=== PATIENT | female | born 1950 | race Caucasian/White ===

== ENCOUNTER 2021-01-02 10:43 | Outpatient (CLI) | payer MEDICARE, OTHER, SELFPAY ==
--- NOTE | ~2021-01-02 | CT_ITS ---
EXAMINATION: CTA chest PE protocol EXAM DATE: 01/02/2021 15:11 INDICATION: SOB; Positive D Dimer dyspnea, elev ddimer, cough 1wk+. TECHNIQUE: Spiral CTA of the chest (pulmonary arteries) was performed with 100 cc Omnipaque 350 intr avenous contrast injection. Images were acquired during the pulmonary arterial phase. Coronal maxi mum intensity projection 3D-reconstructions were created by the technologist on dedicated workstation . Axial, coronal and sagittal reformatted images were reviewed. The dose-length product (DLP) for t his examination was 954.95 mGy-cm. The exposure was tailored according to patient size (auto mA exp osure control), and iterative reconstruction (ASIR) was used as additional dose reduction technique. There is no prior study for comparison. FINDINGS: Pulmonary arteries are well opacified and without intraluminal filling defects. No thora cic aortic dissection. The lungs are clear. There are no pleural or pericardial effusions. Trach eobronchial tree is patent. There is no mediastinal, hilar or axillary lymphadenopathy. There is no pneumothorax. Heart normal in size. There is mild coronary arterial calcification, arterial sc lerosis. There is hepatic steatosis. Surgical changes, gastric bypass. There is moderate thoracic s pondylosis without osteoblastic or osteolytic lesions identified. Spine stimulator the tips at mid thoracic level. IMPRESSION: No pulmonary emboli or acute findings. Reviewed, dictated and finalized at location B. CHEF
--- NOTE | ~2021-01-02 | XR_ITS ---
EXAMINATION: XR chest 2V DATE: 01/02/2021 11:08 INDICATION: Shortness of breath TECHNIQUE: Frontal and lateral views of the chest are obtained COMPARISON: 09/29/2016 FINDINGS: The lungs are free of acute opacities. There is no pleural effusion or pneumothorax. The ca rdiomediastinal silhouette is normal. There is severe thoracic spondylosis. Neural stimulator leads p roject in the central spinal canal over the upper thoracic spine. There are surgical changes in the l eft upper quadrant. IMPRESSION: 1. No acute cardiopulmonary abnormality. Reviewed, dictated and finalized at location A. BUILDER OPERATOR
[2021-01-02 11:21] LABS: Basophils Absolute Auto 0.02 K/mm3 (0.00-0.10); Basophils Percent Auto 0.3 % (0.0-1.0); Eosinophils Absolute Auto 0.13 K/mm3 (0.02-0.50); Eosinophils Percent Auto 2.2 % (1.0-6.0); Hematocrit 40.6 % (35.0-42.0); Hemoglobin 12.9 g/dL (11.7-13.8); Immature Granulocyte Absolute 0.14 K/mm3 (0.00-0.00); Immature Granulocyte Percent A 2.3 % (0.0-0.0); Lymphocytes Absolute Auto 1.75 K/mm3 (1.10-4.50); Lymphocytes Percent Auto 29.3 % (18.0-42.0); Mean Corpuscular HGB Conc 31.8 g/dL (32.0-36.0); Mean Corpuscular Hemoglobin 31.5 pg (27.0-31.0); Mean Platelet Volume 8.2 fl (9.2-11.8); Monocytes Absolute Auto 0.47 K/mm3 (0.10-0.90); Monocytes Percent Auto 7.9 % (2.0-11.0); Neutrophils Absolute Auto 3.5 K/mm3 (1.7-7.2); Nucleated Red Blood Cells Absolute Auto 0.02 K/mm3 (0.00-0.00); Nucleated Red Blood Cells Perc 0.3 % (0-0.0); Platelet Count Result 254 K/mm3 (150-420); Red Cell Distribution Width 14.3 % (11.6-14.4)
[2021-01-02 11:44] LABS: BNP 94.9 pg/mL (0-100)
[2021-01-02 11:55] LABS: SARS-CoV-2 Ag Negative (Negative)
[2021-01-02 11:56] LABS: Influenza Control Valid (Valid)
[2021-01-02 12:41] LABS: Alanine Aminotransferase 19 U/L (14-59); Albumin Level 3.4 g/dL (3.4-5.0); Alkaline Phosphatase 77 U/L (46-116); Anion Gap 8 mmol/L (8-16); Aspartate Amino Transferase 25 U/L (15-37); Bilirubin,Total 0.4 mg/dL (0.00-1.00); Blood Urea Nitrogen 10 mg/dL (7-18); Calcium 8.9 mg/dL (8.5-10.1); Carbon Dioxide 29 mmol/L (21-32); Chloride 101 mmol/L (98-108); Estimated Glomerular Filt Rate 58; Glucose 100 mg/dL (70-99); Osmolality Calculated 285 mOsm/kg (285-295); Sodium 138 mmol/L (136-145); Total Protein 7.2 g/dL (6.4-8.2)
[2021-01-02 13:25] LABS: D Dimer 0.84 mg/L (0.19-0.50)
[2021-01-03 12:21] LABS: SARS-CoV-2 RNA PCR Negative
== END 2021-01-02 10:44 | disposition home or self-care (01) ==
PROVIDERS: PCP Internal Medicine; Visit Provider Internal Medicine
DX: R06.02 Shortness of breath (principal); R79.1 Abnormal coagulation profile; J06.9 Acute upper respiratory infection, unspecified
CPT/HCPCS: 71046; 71275; 80053; 83880; 85025; 85380; 87426; 87804; C9803; Q9967; U0003; U0005

== ENCOUNTER 2021-02-08 13:02 | Outpatient (CLI) | payer MEDICARE, OTHER, SELFPAY ==
--- NOTE | ~2021-02-08 | XR_ITS ---
EXAMINATION: XR shoulder LT min 2V DATE: 02/08/2021 13:46 INDICATION: Left shoulder pain. TECHNIQUE: 4 views of left shoulder were obtained. COMPARISON: None. FINDINGS: Bone alignment is normal. No fracture. There is moderate osteoarthritis of glenohumeral vivek nt and acromioclavicular joint. Epidural electrodes overlie thoracic spine. IMPRESSION: 1. Polyarticular osteoarthritis. Reviewed, dictated and finalized at location A.
--- NOTE | ~2021-02-08 | XR_ITS ---
EXAMINATION: XR shoulder RT min 2V DATE: 02/08/2021 13:46 INDICATION: Right shoulder pain. TECHNIQUE: 5 views of right shoulder were obtained. COMPARISON: None. FINDINGS: Bone alignment is normal. No fracture. There is mild osteoarthritis of glenohumeral joint a nd moderate osteoarthritis of acromioclavicular joint. Epidural electrodes overlie thoracic spine. IMPRESSION: 1. Polyarticular osteoarthritis. Reviewed, dictated and finalized at location A.
== END 2021-02-08 13:03 | disposition home or self-care (01) ==
LOC: CHSIMG 13:05
PROVIDERS: PCP Internal Medicine; Visit Provider Internal Medicine
DX: M25.512 Pain in left shoulder (principal); M25.511 Pain in right shoulder
CPT/HCPCS: 73030

== ENCOUNTER 2021-09-13 08:34 | Emergency (ER) | payer MEDICARE, OTHER, SELFPAY ==
--- NOTE | ~2021-09-13 | CT_ITS ---
EXAMINATION: CT cervical spine wo con EXAM DATE: 09/13/2021 09:51 INDICATION: Fall, left-sided neck pain. Initial encounter. TECHNIQUE: Spiral CT of the cervical spine was performed without contrast. Axial images were reviewe d. Coronal and sagittal reformatted images cervical spine were also reviewed. The dose-length produc t (DLP) for this examination was 504.73 mGy-cm. The exposure was tailored according to patient size (auto mA exposure control), and iterative reconstruction (ASIR) was used as additional dose reduction technique. There is no prior study for comparison. FINDINGS: There is moderate disc disease C5-6 and 6-7. Moderate cervical arthropathy overall. There i s no evidence of acute cervical fracture. The odontoid process is intact. Pre-dens space is normal. Prevertebral soft tissue is normal. There are no soft tissue abnormalities identified. There is n o disc space widening or traumatic vertebral body subluxation suspected. Vertebral body and disc hei ghts are well-maintained. A detailed level by level evaluation of spondylosis can be added as adden dum if requested. IMPRESSION: 1. No acute cervical fracture. 2. Moderate cervical spondylosis. Reviewed, dictated and finalized at location B. L FACE STONER AND POLISHER
--- NOTE | ~2021-09-13 | CT_ITS ---
EXAMINATION: CT pelvis wo con DATE: 09/13/2021 09:51 INDICATION: Left hip pain. Fall. TECHNIQUE: Computed tomography (CT) of the pelvis was performed without intravenous contrast. Automat ed exposure control and iterative reconstruction technique were employed. The dose-length product was 948.07 mGy-cm. COMPARISON: CT abdomen and pelvis 11/06/2016 FINDINGS: Bone alignment is normal. No fracture. There is moderate osteoarthrosis of the sacroiliac j oints and mild osteoarthritis of the hip joints. There is a 9 mm nonaggressive lytic lesion with scle rotic margin in right ischium without change, likely benign. There is bilateral trochanteric bursitis . Partially visualized is a subcutaneous electronic device in right posterior body wall. IMPRESSION: 1. No fracture. Reviewed, dictated and finalized at location A. RACT ATTORNEY IMPRESSION: 1. No fracture.
--- NOTE | ~2021-09-13 | CT_ITS ---
EXAMINATION: CT brain wo con DATE: 09/13/2021 09:50 INDICATION: Head injury. TECHNIQUE: Computed tomography (CT) of the head was performed without intravenous contrast. The mA wa s adjusted according to patient size. Iterative reconstruction technique was employed. The dose-lengt h product was 681.00 mGy-cm. COMPARISON: None FINDINGS: There is no intracranial hemorrhage, acute infarction, or abnormal intracranial mass lesion . The ventricles are normal in size. There is mild mucosal thickening in the paranasal sinuses. The o rbits are normal. There is a trace left mastoid effusion. IMPRESSION: 1. Normal brain. Reviewed, dictated and finalized at location A. OR ENERGY CONSULTANT IMPRESSION: 1. Normal brain.
--- NOTE | ~2021-09-13 | XR_ITS ---
EXAMINATION: XR chest 1V portable DATE: 09/13/2021 09:51 INDICATION: Left shoulder pain. Fall. TECHNIQUE: A single frontal view of the chest was obtained on 3 radiographs. COMPARISON: Chest 2 views 01/02/2021 FINDINGS: There is chronic elevation of right hemidiaphragm. No pneumonia, pleural effusion, or pneum othorax. The heart size is normal. Electrodes overlie thoracic spine. There are surgical clips in lef t upper quadrant of the abdomen. IMPRESSION: 1. No acute cardiopulmonary disease. Reviewed, dictated and finalized at location A. ER LICENSE AGENT
--- NOTE | ~2021-09-13 | XR_ITS ---
EXAMINATION: XR femur LT min 2V DATE: 09/13/2021 09:51 INDICATION: Left thigh pain. TECHNIQUE: 2 views of left femur on 4 radiographs were obtained. COMPARISON: None. FINDINGS: Bone alignment is normal. No fracture. There is mild left hip osteoarthritis. No knee joint effusion. IMPRESSION: 1. Mild left hip osteoarthritis. Reviewed, dictated and finalized at location A. AND SADDLE REPAIR PERSON
--- NOTE | ~2021-09-13 | XR_ITS ---
EXAMINATION: XR shoulder LT min 2V EXAM DATE: 09/13/2021 09:52 INDICATION: Fall, left-sided shoulder pain. TECHNIQUE: The following left shoulder projections obtained: frontal projection with internal rotatio n, frontal projection with external rotation, Grashey, and scapular Y view (4+ views). There is no p rior study for comparison. FINDINGS: No evidence of left shoulder rotator cuff calcific tendinosis. There is mild to moderate glenohumeral joint, mild to moderate acromioclavicular joint primary osteoarthritis. There are no ac [place] fractures or dislocations identified. There is no subcutaneous gas. The soft tissue is unremark able. Spine stimulator leads, tips at mid thoracic region. IMPRESSION: 1. Left shoulder exam without acute osseous findings. 2. Left shoulder osteoarthritis. Reviewed, dictated and finalized at location B. E OPERATOR
[2021-09-13 08:44] VITALS: BP 113/64; PULSE 84; RESP 20; TEMP 36.7; O2SAT 94
--- NOTE | 2021-09-13 09:01 | ECG_ITS ---
Measurements Intervals [place] Rate: 82 P: 12 CO: 148 QRS: -26 QRSD: 77 T: 50 QT: 353 QTc: 413 Interpretive Statements SINUS RHYTHM VENTRICULAR PREMATURE COMPLEX DELAYED PRECORDIAL R/S TRANSITION LOW QRS VOLTAGE IN PRECORDIAL LEADS BASELINE ARTIFACT- II, III BORDERLINE ECG Electronically Signed On 09-13-2021 10:24:37 EXCHANGE ADMINISTRATOR by Pierce Cuevas D.O.
[2021-09-13] MEDS: KETOROLAC (*BKC) 60 MG/2 ML VIAL IM (09:56)
[2021-09-13] MEDS: SODIUM CHLORIDE 0.9% IV 500 ML 999 ML IV CONT (09:57)
[2021-09-13] MEDS: ASPIRIN 325 MG ENTERIC TABLET PO (09:58)
[2021-09-13 10:26] LABS: Basophils Absolute Auto 0.03 K/mm3 (0.00-0.10); Basophils Percent Auto 0.4 % (0.0-1.0); Eosinophils Percent Auto 1.3 % (1.0-6.0); Hematocrit 39.3 % (35.0-42.0); Hemoglobin 12.9 g/dL (11.7-13.8); Immature Granulocyte Absolute 0.19 K/mm3 (0.00-0.00); Immature Granulocyte Percent A 2.4 % (0.0-0.0); Lymphocytes Absolute Auto 1.09 K/mm3 (1.10-4.50); Mean Corpuscular HGB Conc 32.8 g/dL (32.0-36.0); Mean Corpuscular Hemoglobin 32.4 pg (27.0-31.0); Mean Corpuscular Volume 98.7 fL (78.0-102.0); Mean Platelet Volume 8.1 fl (9.2-11.8); Monocytes Absolute Auto 0.71 K/mm3 (0.10-0.90); Monocytes Percent Auto 9.1 % (2.0-11.0); Neutrophils Absolute Auto 5.6 K/mm3 (1.7-7.2); Neutrophils Percent Auto 72.8 % (50.0-70.0); Platelet Count Result 235 K/mm3 (150-420); Red Blood Count 3.98 M/mm3 (4.20-5.40); Red Cell Distribution Width 14.6 % (11.6-14.4); White Blood Count 7.8 K/mm3 (4.8-10.8)
[2021-09-13 10:43] LABS: Alanine Aminotransferase 37 U/L (14-59); Albumin Level 3.3 g/dL (3.4-5.0); Alkaline Phosphatase 71 U/L (46-116); Anion Gap 9 mmol/L (8-16); Aspartate Amino Transferase 41 U/L (15-37); Bilirubin,Total 0.2 mg/dL (0.00-1.00); Blood Urea Nitrogen 17 mg/dL (7-18); Calcium 9.1 mg/dL (8.5-10.1); Carbon Dioxide 29 mmol/L (21-32); Chloride 99 mmol/L (98-108); Estimated Glomerular Filt Rate 52; Glucose 125 mg/dL (70-99); Osmolality Calculated 286 mOsm/kg (285-295); Potassium 4.1 mmol/L (3.5-5.1); Sodium 137 mmol/L (136-145); Total Protein 7.5 g/dL (6.4-8.2)
--- NOTE | 2021-09-13 11:15 | ED.FALL ---
HPI - Fall General Source: patient and RN notes reviewed Mode of arrival: wheelchair Limitations: no limitations History of Present Illness complaint: fall Onset (ago): hour(s) (2) Fall from: standing Place fall occurred: home Loss of consciousness: none Prolonged down time: no Symptoms prior to fall: none Location of injury: pelvis and other (left shoulder) Related Data Home Medications Medication Instructions Recorded Confirmed morphine 30 mg PO DAILY 09/13/21 09/13/21 oxycodone-acetaminophen See Rx Instructions .ROUTE .COMPLEX 09/13/21 09/13/21 trazodone See Rx Instructions .ROUTE .COMPLEX 09/13/21 09/13/21 Allergies Allergy/AdvReac Type Severity Reaction Status Date / Time tizanidine AdvReac Intermediate MADE PT Verified 09/13/21 11:23 MEAN AND HALLUCINAT Review of Systems Review of Systems: All systems reviewed & are unremarkable except as noted in HPI and below Musculoskeletal: Musculoskeletal: Reports myalgias and Reports arthralgias PMFSH Past Medical History Medical History Acute CVA (cerebrovascular accident) Contusion of hip, left Contusion of left shoulder Exam Const: General: no acute distress and alert Orientation/consciousness: patient oriented x3 Limitations: no limitations HENMT: Head: normal to inspection Ears: external ears normal and TM's normal bilaterally General nose exam: Normal external nose present and Normal nares present Mouth: Yes lip normal Teeth and gingiva: dentition normal Eyes: Conjunctivae: conjunctivae normal Pupils: Equal, round and reactive pupils present EOM: EOMs intact bilaterally Neck: Neck: normal visual inspection and no lymphadenopathy Chest: Chest palpation & inspection: normal inspection of the chest Resp: Effort & Inspection: normal respiratory effort Auscultation: clear to auscultation bilaterally Cardio: Rate: regular rate Rhythm: regular rhythm GI: Auscultation: normal bowel sounds : General: Yes bladder normal to palpation and Yes no CVA tenderness Back/Spine/Pelvis: Back: no CVA tenderness Skin: General skin exam: normal color Rashes: no rashes Neuro: General: patient oriented x3, moves all extremities, no meningeal signs, no focal motor deficits and CN's II-XI intact bilaterally Extrem: General: normal to inspection Other: minimally tender left shoulder and left hip. no acute redness, swelling or deformity. Psych: Appearance: grossly normal and well kempt Mental Status: mental status grossly normal Affect: normal affect Thought content: Yes Normal thought content present Course Course Emergency Course: Pt was stable in the ED with less pain. Reevaluation(s) Reevaluation #1: Pt VSS. Date: 09/13/21 Time: 09:31 Vital Signs Vital signs: Vital Signs Temperature 36.7 C 09/13/21 08:44 Pulse Rate 84 09/13/21 08:44 Respiratory Rate 20 09/13/21 08:44 Blood Pressure 113/64 09/13/21 08:44 Pulse Oximetry 94 09/13/21 08:44 Temperature 36.7 C 09/13/21 11:39 Pulse Rate 85 09/13/21 11:39 Respiratory Rate 20 09/13/21 11:39 Blood Pressure 148/88 H 09/13/21 11:39 Pulse Oximetry 96 09/13/21 11:39 MDM - Fall Differential Diagnosis Differential diagnosis: Likely dislocation of shoulder region and other (left hip injury.) Medical Records Attestation: I reviewed the patient's medical records. Lab Data Attestation: I reviewed the patient's lab results. Result diagrams: 09/13/21 10:17 09/13/21 10:17 Labs: Lab Results 09/13/21 09/13/21 Range/Units 10:17 10:17 WBC 7.8 (4.8-10.8) K/mm3 RBC 3.98 L (4.20-5.40) M/mm3 Hgb 12.9 (11.7-13.8) g/dL Hct 39.3 (35.0-42.0) % MCV 98.7 (78.0-102.0) fL MCH 32.4 H (27.0-31.0) pg MCHC 32.8 (32.0-36.0) g/dL RDW 14.6 H (11.6-14.4) % Plt Count 235 (150-420) K/mm3 MPV 8.1 L (9.2-11.8) fl Immature Gran % (Auto) 2.4 H (0
[2021-09-13] MEDS: MORPHINE SULFATE (*CRX) 2 MG/ML INJ IV PUSH (11:25)
[2021-09-13 11:39] VITALS: BP 148/88; PULSE 85; RESP 20; TEMP 36.7; O2SAT 96
== END 2021-09-13 12:04 | disposition home or self-care (01) ==
PROVIDERS: Emergency Provider Emergency Medicine; PCP Internal Medicine
DX: S70.02XA Contusion of left hip, initial encounter (principal); S40.012A Contusion of left shoulder, initial encounter; W19.XXXA Unspecified fall, initial encounter; Z86.73 Personal history of transient ischemic attack (TIA), and cerebral infarction without residual deficits
CPT/HCPCS: 36415; 70450; 70496; 71045; 72125; 72192; 73030; 73552; 80053; 83605; 84484; 85025; 93005; 96361; 96372; 96374; 99283; 99284; 99285; A9270; J1885; J2060; J2270; J7030; J7040; Q9967

== ENCOUNTER 2021-09-13 17:38 | Emergency (ER) | payer MEDICARE, OTHER, SELFPAY ==
--- NOTE | ~2021-09-13 | CT_ITS ---
EXAMINATION: CTA brain DATE: 09/13/2021 18:17 INDICATION: Left-sided hemiparesis TECHNIQUE: Computed tomographic angiography (CTA) of the head was performed without and with 100 mL O mnipaque-350 intravenous contrast. Volume-rendered and maximum intensity projection 3D reconstruction s of the intracranial arteries were created by the technologist on a separate workstation. Automated exposure control and iterative reconstruction technique were employed. The dose-length product was 69 6.79 mGy-cm. COMPARISON: None. FINDINGS: There is no hemodynamically significant stenosis in the vertebral, basilar and internal carotid arter ies. Left vertebral artery is dominant. There are no aneurysms, dissection or thrombosis identified. Bilateral A1 and left P1 segments are patent. The right posterior cerebral artery is supplied via a p atent right posterior communicating artery. Cerebral arterial arborization appears symmetric. No abno rmally enhancing brain lesions. IMPRESSION: 1. Unremarkable cerebral CT angiogram. Reviewed, dictated and finalized at location A. GLE CUTTER
--- NOTE | 2021-09-13 17:43 | ECG_ITS ---
Measurements Intervals [place] Rate: 79 P: 7 FL: 152 QRS: -30 QRSD: 79 T: 46 QT: 358 QTc: 412 Interpretive Statements SINUS RHYTHM LOW QRS VOLTAGE IN PRECORDIAL LEADS BORDERLINE R WAVE PROGRESSION, ANTERIOR LEADS BORDERLINE ECG Electronically Signed On 09-13-2021 19:55:03 ETL APPLICATION DEVELOPER by Pierce Cuevas D.O.
[2021-09-13 17:59] LABS: Basophils Absolute Auto 0.04 K/mm3 (0.00-0.10); Basophils Percent Auto 0.5 % (0.0-1.0); Eosinophils Absolute Auto 0.13 K/mm3 (0.02-0.50); Eosinophils Percent Auto 1.6 % (1.0-6.0); Hematocrit 39.7 % (35.0-42.0); Immature Granulocyte Absolute 0.19 K/mm3 (0.00-0.00); Immature Granulocyte Percent A 2.4 % (0.0-0.0); Lymphocytes Percent Auto 21.3 % (18.0-42.0); Mean Corpuscular HGB Conc 32.7 g/dL (32.0-36.0); Mean Corpuscular Hemoglobin 32.3 pg (27.0-31.0); Mean Corpuscular Volume 98.5 fL (78.0-102.0); Mean Platelet Volume 8.2 fl (9.2-11.8); Monocytes Absolute Auto 0.94 K/mm3 (0.10-0.90); Monocytes Percent Auto 11.8 % (2.0-11.0); Neutrophils Percent Auto 62.4 % (50.0-70.0); Platelet Count Result 232 K/mm3 (150-420); Red Blood Count 4.03 M/mm3 (4.20-5.40); Red Cell Distribution Width 14.7 % (11.6-14.4)
[2021-09-13 18:19] LABS: Alanine Aminotransferase 35 U/L (14-59); Albumin Level 3.2 g/dL (3.4-5.0); Alkaline Phosphatase 70 U/L (46-116); Anion Gap 10 mmol/L (8-16); Aspartate Amino Transferase 39 U/L (15-37); Bilirubin,Total 0.2 mg/dL (0.00-1.00); Blood Urea Nitrogen 20 mg/dL (7-18); Calcium 9.2 mg/dL (8.5-10.1); Carbon Dioxide 24 mmol/L (21-32); Chloride 101 mmol/L (98-108); Estimated Glomerular Filt Rate 47; Glucose 119 mg/dL (70-99); Osmolality Calculated 283 mOsm/kg (285-295); Potassium 4.3 mmol/L (3.5-5.1); Sodium 135 mmol/L (136-145); Total Protein 7.4 g/dL (6.4-8.2); Troponin I 10.5 ng/L (0.00-60.4)
[2021-09-13 18:22] LABS: Lactic Acid Reflex 1.9 mmol/L (0.4-2.0)
[2021-09-13 18:47] VITALS: BP 156/64; PULSE 84; RESP 20; TEMP 36.7; O2SAT 98
[2021-09-13 19:08] VITALS: PULSE 79
[2021-09-13] MEDS: SODIUM CHLORIDE 0.9% IV 1,000 ML 150 ML IV CONT (19:30)
--- NOTE | 2021-09-13 19:46 | ED.WEAKNESS ---
HPI - Weakness General Chief complaint: Weakness Stated complaint: left side not working Time Seen by Provider: 09/13/21 17:42 Source: patient, family, RN notes reviewed and other (see PMD medical record notes. Pt was referred to the ED via PMD.) Mode of arrival: wheelchair Limitations: no limitations History of Present Illness Complaint: focal weakness Onset (ago): hour(s) (pt spouse said the left-sided weakness started just after 12 noon 09/13/2021.) Duration: progressively worsening Location: LUE and LLE Migration: none Severity: severe Severity scale (1-10): 8 Quality: dull Relieving factors: none Exacerbating factors: none Related Data Home Medications Medication Instructions Recorded Confirmed morphine 30 mg PO DAILY 09/13/21 09/13/21 oxycodone-acetaminophen See Rx Instructions .ROUTE .COMPLEX 09/13/21 09/13/21 trazodone See Rx Instructions .ROUTE .COMPLEX 09/13/21 09/13/21 Allergies Allergy/AdvReac Type Severity Reaction Status Date / Time tizanidine AdvReac Intermediate MADE PT Verified 09/13/21 11:23 MEAN AND HALLUCINAT Review of Systems Review of Systems: All systems reviewed & are unremarkable except as noted in HPI and below PMFSH Past Medical History Medical History (Updated 09/13/21 @ 22:02 by Dipak Roth MD) Acute CVA (cerebrovascular accident) Contusion of hip, left Contusion of left shoulder Exam Const: General: no acute distress and alert Limitations: no limitations Other: pt was mostly quiet initially with dense left upper and lower extremities flaccidity. subsequently the left lower extremity was weak 2/5 with some movement HENMT: Head: normal to inspection Ears: external ears normal and TM's normal bilaterally General nose exam: Normal external nose present and Normal nares present Mouth: Yes lip normal and Yes moist mucous membranes Teeth and gingiva: dentition normal Eyes: Conjunctivae: conjunctivae normal Pupils: Equal, round and reactive pupils present EOM: EOMs intact bilaterally Neck: Neck: normal visual inspection and no lymphadenopathy Chest: Chest palpation & inspection: normal inspection of the chest Resp: Effort & Inspection: normal respiratory effort Auscultation: clear to auscultation bilaterally Cardio: Rate: regular rate Rhythm: regular rhythm GI: GI Palp: Yes Soft to palpation and No Tenderness to palpation present (GI) Auscultation: normal bowel sounds : General: Yes bladder normal to palpation and Yes no CVA tenderness Back/Spine/Pelvis: Back: no CVA tenderness Skin: General skin exam: normal color Rashes: no rashes Neuro: General: patient oriented x3, moves all extremities, no meningeal signs, no focal motor deficits and CN's II-XI intact bilaterally Extrem: General: normal to inspection and no pedal edema Psych: Mental Status: mental status grossly normal Affect: Anxious affect present Thought content: Yes Normal thought content present and No Paranoid delusions present Course Course Emergency Course: Pt was d/w Neurologist Dr Ron and Hospitalist Dr Dunlap and accepted for transfer to [facility] [place] for review and manx. TPA was not indicated. Reevaluation(s) Reevaluation #1: Pt had flaccid left upper and lower limbs. Date: 09/13/21 Time: 18:40 Vital Signs Vital signs: Vital Signs Temperature 36.7 C 09/13/21 18:47 Pulse Rate 84 09/13/21 18:47 Respiratory Rate 20 09/13/21 18:47 Blood Pressure 156/64 H 09/13/21 18:47 Pulse Oximetry 98 09/13/21 18:47 Temperature 36.7 C 09/13/21 18:47 Pulse Rate 79 09/13/21 19:08 Respiratory Rate 20 09/13/21 18:47 Blood Pressure 156/64 H 09/13/21 18:47 Pulse Oximetry 98 09/13/21 18:47 MDM - Weakness Differential Diagnosis Differential diagnosis: Likely other (CVA, TIA, ) Medical Records Attestation: I reviewed the patient's medical records. Lab Data Attestation: I reviewed the patient's lab results. Resu
--- NOTE | 2021-09-13 20:32 | PC.NURSE ---
awaiting bed placement. in with pt to keep in bed. pt agitated and angry when nurse tries to give instruction.
--- NOTE | 2021-09-13 21:39 | PC.NURSE ---
pt drinking from water bottle given to pt by . this singer songwriter and other staff members have repeatedly explained to pt and about risk of aspiration. pt and noncompliant with instructions from nurse.
[2021-09-13 21:45] VITALS: RESP 20; TEMP 37.1; O2SAT 98
--- NOTE | 2021-09-13 21:55 | PC.NURSE ---
pt argumentative. wanting to get dressed and go home. attempting to keep pt in cot. MORE Rosas in room attempting to reorientate pt. pt does not want this senior technical writer in room, yelling get out this senior technical writer has attempted to reorientate pt and give information about transfer and pt agitation increasing, asked this senior technical writer to leave room.
[2021-09-13] MEDS: LORazepam INJ (*CRX) 2 MG/ML VIAL 1 MG IV PUSH (22:00)
--- NOTE | 2021-09-13 22:16 | PC.NURSE ---
2200 pt agitated, med ordered and given as ordered. pt to ems cot with assist of and ems staff. unable to get full set of discharge vitals, pt refused. pt continues with confusion .
== END 2021-09-13 22:18 | disposition short-term general hospital (02) ==
PROVIDERS: Emergency Provider Emergency Medicine; PCP Internal Medicine
DX: I63.9 Cerebral infarction, unspecified (principal)
CPT/HCPCS: 36415; 70496; 80053; 83605; 84484; 85025; 93005; 96361; 96374; 99285; J2060; J7030; Q9967

== ENCOUNTER 2022-10-04 00:43 | Day surgery (SDC) | payer MEDICARE, SELFPAY ==
[2022-09-25 12:51] VITALS: BMI 36.6
--- NOTE | 2022-09-25 13:21 | PC.NURSE ---
Addendum entered by Nelia Garcia RN 09/25/22 13:51: MED SHEET FAXED TO DR CAGLE'S OFFICE. THEY WILL F/U WITH PATIENT CONCERNING IF SHE IS A HOLD HER ASPIRIN PRE-OP. Original Note: Report to the Outpatient Waiting Room, entrance under the green pavilion located off [facility], at time __6:00AM on date __10/04/22 . Planned Procedure Time: _7:30AM . Time changes happen often and if your time is changed the preop area will call you the afternoon before. - You and your visitor will be asked to self-screen and do not enter if you have any COVID symptoms. - Only one visitor is requested with a max of two and NO children visitors are allowed at this time. - The patient visitor may be requested to leave or wait in car when not with patient due to distancing restrictions. - A mask is optional within the hospital. Patients may have clear liquids (water, carbonated beverages, clear teas, apple juice) until 3 hours prior to surgery with a maximum of 20 ounces. - No food from midnight until time of surgery Take the following medications with a SIP of water the morning of surgery: __MORPHINE, OXYCODONE/ACET Medications to discontinue per physician ___HOLD ALL VITAMINS/SUPPLEMENTS 3 DAYS PRE-OP- LAST DOSE 09/30/22. HOLD ASPIRIN PER DR CAGLE____ Please no make-up, nail estonian, hairspray, perfume, deodorant, or body powder the day of surgery. No jewelry (including any body piercings) or valuables the day of surgery, leave them at home. Please take a shower or bath the night before, or the morning of, surgery with an antibacterial soap. Wear comfortable, loose fitting clothing. Children are encouraged to wear pajamas. - Jewelry must be removed prior to entering the operating room. Rings and piercings that are not removed may be cut off. - The hospital will not accept responsibility for valuables. - Please leave all valuables, including medications, at home the day of surgery. If you are going home after surgery, a licensed coach driver must drive you home. - NO public transportation without another adult if you receive anesthesia. - We recommend that an adult stay with you for 24 hours following discharge. - We also recommend that you do not drive, make important decision, drink alcoholic beverages, or take any drugs that were not prescribed by your health care provider for at least 24 hours after your discharge time. Follow any additional instructions given to you from your surgeon. If you or anyone in your household have experienced Covid symptoms in the past week, please notify your surgeon or the nurse liaison at the phone number below for possible testing. Telephone instructions given to __PATIENT___and asked if any additional questions and then verbalized understanding. Patient advised to call surgeon office or pre surgery nurse liaison [phone] if any additional questions.
[2022-10-04 07:12] VITALS: BP 132/69; PULSE 79; RESP 20; TEMP 36.3; O2SAT 96
[2022-10-04] MEDS: LACTATED RINGERS 1,000 ML 30 ML IV CONT (07:20)
--- NOTE | 2022-10-04 07:21 | WPDHPUPDATE1 ---
History and Physical Update Update Date/Time: 10/04/22 07:21 History and Physical has been reviewed, including an updated exam of the patient. There are NO changes in the patient's condition. Risks, benefits, and alternatives have been discussed and questions answered. Patient agrees to proceed with procedure.
--- NOTE | 2022-10-04 07:28 | WPDANESEPPF ---
Anes - Initial Pre Proc Eval Procedure: Operation Date: 10/04/22 07:30 Proposed Procedures p Excision Basal Cell Carcinoma Right Medial Cheek with Frozen Section and Local Tissue Transfer, Excision Basal Cell Carcinoma Right Upper Eyelid with Possible Frozen Section, Excision of Keratotic Neoplasm Left Lower Eyelid with Possible Frozen Section - Hussein Franklin MD Date/Time: 10/04/22 07:28 Surgeon: Hussein Franklin MD Pre Op Diagnosis: BCC Rt Medial Cheek, BCC Rt Upper Eyelid Keratotic Patient Data Age: 72 Gender: F Height: 1.57 m Weight: 91 kg Allergies Allergy/AdvReac Type Severity Reaction Status Date / Time tizanidine AdvReac Intermediate MADE PT Verified 10/04/22 07:15 MEAN AND HALLUCINAT Home Medications Medication Instructions Recorded Confirmed Type morphine 30 mg tablet,extended 30 mg PO BID 09/13/21 10/04/22 History release oxycodone-acetaminophen 10 mg-325 1 tablet PO TID 09/13/21 10/04/22 History mg tablet trazodone 100 mg tablet 200 mg PO HS 09/13/21 09/25/22 History allopurinol 100 mg tablet 200 mg PO DAILY 09/25/22 09/25/22 History aspirin 81 mg tablet,delayed 81 mg PO DAILY 09/25/22 09/25/22 History release calcium carbonate 600 mg-vitamin 1 tablet PO DAILY 09/25/22 09/25/22 History D3 5 mcg (200 unit) tablet docusate sodium 100 mg capsule 300 mg PO BID 09/25/22 09/25/22 History estradiol 2 mg tablet 2 mg PO DAILY 09/25/22 09/25/22 History uvtk-yopug-gw1-rhp-uhv-kmkq-sterols 2 cap PO DAILY 09/25/22 09/25/22 History 375 mg-100 mg-36 mg-54 mg capsule (Glucosamine Chondroitin PLUS) magnesium oxide 400 mg (241.3 mg 400 mg PO BID 09/25/22 09/25/22 History magnesium) tablet mirtazapine 15 mg tablet 15 mg PO HS 09/25/22 09/25/22 History naloxegol 25 mg tablet (Movantik) 50 mg PO QAM 09/25/22 09/25/22 History naproxen sodium 220 mg capsule 220 mg PO BID PRN Pain 09/25/22 09/25/22 History (Aleve) oxcarbazepine 150 mg tablet 300 mg PO HS 09/25/22 09/25/22 History quetiapine 300 mg tablet 300 mg PO HS 09/25/22 09/25/22 History zinc 50 mg capsule 50 mg PO BID 09/25/22 09/25/22 History Patient hx anesthesia problems: none Family hx anesthesia problems: none Results Review: All pre-operative results and documents have been reviewed as part of the pre-operative evaluation. FOR[facility], [facility] Past Medical History Medical History Acute CVA (cerebrovascular accident) Contusion of hip, left Contusion of left shoulder Social History Social History Smoking packs per day: 1 Smoking cigarettes per day: 20.0 Years smoked: 15 Smoking pack-years: 15.00 Smoking status: Former smoker Tobacco type: cigarettes Smoking end date: 04/27/80 Substance use: never Living arrangements: with family Additional living arrangements comments: Spiritual care concerns: No Anes - Eval Final PreProcedure Day of Procedure 10/04/22 07:28 Patient weight: obese Heart: regular rate and rhythm Lungs: clear to auscultation Airway: Mallampati scale class III Neurological: alert and oriented Last oral intake: >/= 8 hours ASA classification: III Emergent: no Anesthetic plan: proceed Anesthesia type and monitoring: general GIVS (may use LMA) Results Review: All pre-operative results and documents have been reviewed as part of the pre-operative evaluation. Informed Consent: The patient's anesthetic plan and its attendant risks and benefits were discussed with the patient/family/POA. Questions were solicited and answers provided to the satisfaction of the patient/family/POA.
[2022-10-04] MEDS: BACITRACIN OINTMENT 15 GM TUBE 1 APPLIC TOPICAL (07:41)
[2022-10-04] MEDS: LIDO 1%/EPINEPHRINE/PF 1:200,000 30 ML VIAL 10 ML XX (07:41)
[2022-10-04 09:38] VITALS: BP 97/51; PULSE 69; RESP 14; O2SAT 93
[2022-10-04 10:00] VITALS: BP 119/60; PULSE 67; RESP 16; O2SAT 94
--- NOTE | 2022-10-04 10:02 | W.PM.PROC2 ---
Procedure Note - Detailed Date of Procedure 10/04/22 Pre-op Diagnosis BCC Rt Medial Cheek, BCC Rt Upper Eyelid Keratotic Post-op Diagnosis Same Procedure Performed 1.6 cm excision basal cell carcinoma the right medial cheek with frozen section x2 and intermediate repair 3 cm. 1 cm excision of basal cell carcinoma of the right upper eyelid with frozen section and simple repair 1 cm Surgeon Hussein Franklin MD Anesthesia MAC Description of Procedure The patient is brought for excision of 3 lesions. In preop we located the two sites on the right side of the face and marked for excision. On the left lower lid, the actual site was not certainly evident and since the biopsy had been actinic keratosis we elected not to proceed with surgery on that side. She was taken to the operating room and placed supine on the operating table. She was given sedation anesthetic with an LMA and the face was prepped and draped in usual fashion. The sites were again carefully examined and the plan remained to excise the nodular lesion of the right medial cheek and the basal cell carcinoma biopsied previously in the right upper eyelid. Each site was anesthetized with 1% lidocaine with epinephrine. The lesion from the right medial skin was taken 1st the full-thickness specimen including underlying fat the inferior aspect was marked as 12 o'clock and the specimen sent for frozen section. The pathologist indicated the 11-1 o'clock margin was positive with basal carcinoma. Additional incision from the inferior aspect was taken. This was labeled 10-2 o'clock margin with a new suture at the new 12:00 p.m. site. Pathologist reported that new margins were then free. The wound margins were undermined approximately a cm in all directions and the wound was closed with advancement of Pagett tissue medially avoiding downward traction on the lower lid. 4-0 intradermal Vicryl were used to approximate the skin edges. The skin was closed with a running 5 0 nylon. The lesion from the upper lid was excised with a 15 blade into the subcutaneous tissue. That specimen was also sent to pathology and the pathologist revealed no residual tumor. The site was closed with interrupted 5 0 fast-absorbing gut. The patient has pain medicine at home she takes on a regular basis and no additional analgesia was ordered for her. Estimated Blood Loss 2 Drains No Packing No Pathology Yes Complications No immediate complications Condition Stable Disposition Same day
[2022-10-04 10:15] VITALS: BP 108/54; PULSE 64; RESP 16
== END 2022-10-04 10:39 | disposition home or self-care (01) ==
PROVIDERS: PCP Internal Medicine; Visit Provider Plastic Surgery
PROC: (CPT 11642; principal; 2022-10-04 07:30)
DX: C44.319 Basal cell carcinoma of skin of other parts of face (principal); C44.1121 Basal cell carcinoma of skin of right upper eyelid, including canthus; Z86.73 Personal history of transient ischemic attack (TIA), and cerebral infarction without residual deficits; Z79.82 Long term (current) use of aspirin; Z87.891 Personal history of nicotine dependence; E66.9 Obesity, unspecified; Z68.35 Body mass index [BMI] 35.0-35.9, adult
CPT/HCPCS: 11642; 12052; 11641; 88305; 88331; A9270; J2405; J2704; J3010; J7120

== ENCOUNTER 2023-12-10 09:59 | Outpatient (CLI) | payer MEDICARE, SELFPAY ==
--- NOTE | ~2023-12-10 | CT_ITS ---
EXAMINATION: CT brain wo/w con DATE: 12/10/2023 11:45 INDICATION: Headache. Neck pain. TECHNIQUE: Computed tomography (CT) of the head was performed without and with 100 mL Omnipaque 350 i ntravenous contrast. The mA was adjusted according to patient size. Iterative reconstruction techniqu e was employed. The dose-length product was 1362.00 mGy-cm. COMPARISON: Head CT 09/13/2021 FINDINGS: There are scattered areas of low attenuation in the cerebral white matter, which is within normal limits for the patient's age. There is no intracranial hemorrhage, acute infarction, or abnorm al intracranial mass lesion. The ventricles are normal in size. The orbits are normal. There is mild mucosal thickening in the ethmoid sinuses. The mastoid air cells are normal. IMPRESSION: 1. Normal aging brain. Reviewed, dictated and finalized at location A. COVERER IMPRESSION: 1. Normal aging brain.
--- NOTE | ~2023-12-10 | XR_ITS ---
XR_[id number] DATE: 12/10/2023 10:27 INDICATION: Neck pain, severe headaches. TECHNIQUE: AP, odontoid, lateral, swimmer views COMPARISON: None FINDINGS: C1 and C2 are normally aligned and the odontoid process is intact. There is severe degenerative disc disease at C5-6 and C6-7. Uncovertebral joint spurring is noted at these 2 levels as well. No fracture or dislocation or locked facet or prevertebral soft tissue swelling. IMPRESSION: Severe degenerative disc disease at C5-6 and C6-7 No fracture or dislocation or locked facet is detected. Reviewed, dictated and finalized at Location A. 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
[2023-12-10 11:01] LABS: Estimated Glomerular Filt Rate > 60
== END 2023-12-10 10:00 | disposition home or self-care (01) ==
PROVIDERS: PCP Internal Medicine; Visit Provider Internal Medicine
DX: R51.9 Headache, unspecified (principal); M50.322 Other cervical disc degeneration at C5-C6 level
CPT/HCPCS: 70470; 72040; Q9967

== ENCOUNTER 2024-02-20 13:37 | Outpatient (CLI) | payer MEDICARE, SELFPAY ==
--- NOTE | 2024-02-20 14:00 | PC.NURSE ---
Patient here for IV fluids. Patient transfered from wheelchair to bed with 2x assist. Resting in bed with hob elevated. Call light at side. IV site started to left wrist, patient tolerated fair. Call light and belongings provided. Provided with cup of ice per request.
[2024-02-20] MEDS: SODIUM CHLORIDE 0.9% IV 1,000 ML 500 ML IVPB (14:04)
--- NOTE | 2024-02-20 16:34 | PC.NURSE ---
Patient's Normal saline infusion completed. IV intact with coban applied over site. Patient tolerated well. Patient to have another NS infusion 02/21/24. Assisted via wheelchair to car.
== END 2024-02-20 13:38 | disposition home or self-care (01) ==
LOC: CHSTREATRM 13:40
PROVIDERS: PCP Internal Medicine; Visit Provider Internal Medicine Hematology
DX: E86.0 Dehydration (principal)
CPT/HCPCS: 96360; 96361; J7030

== ENCOUNTER 2024-02-21 13:08 | Outpatient (CLI) | payer MEDICARE, SELFPAY ==
[2024-02-21] MEDS: SODIUM CHLORIDE 0.9% IV 1,000 ML 500 ML IVPB (13:48)
[2024-02-21 14:12] LABS: Alanine Aminotransferase 20 U/L (14-59); Albumin Level 2.2 g/dL (3.4-5.0); Alkaline Phosphatase 95 U/L (46-116); Anion Gap 12 mmol/L (4-12); Aspartate Amino Transferase 36 U/L (15-37); Bilirubin,Total 0.4 mg/dL (0.00-1.00); Blood Urea Nitrogen 16 mg/dL (7-18); Carbon Dioxide 28 mmol/L (21-32); Chloride 98 mmol/L (98-108); Estimated Glomerular Filt Rate 57; Glucose 132 mg/dL (70-99); Osmolality Calculated 289 mOsm/kg (285-295); Potassium 3.2 mmol/L (3.5-5.1); Sodium 138 mmol/L (136-145); Total Protein 7.6 g/dL (6.4-8.2)
[2024-02-21 14:20] LABS: Calcium 12.3 mg/dL (8.5-10.1)
--- NOTE | 2024-02-21 16:35 | PC.NURSE ---
Patient's liter of NS completed. IV removed with cath intact. Patient tolerated well. at bedside. Patient and spouse state this was her last infusion. Patient assisted into wheelchair and taken to her car. Patient assisted into car.
== END 2024-02-21 13:09 | disposition home or self-care (01) ==
LOC: CHSTREATRM 13:12
PROVIDERS: PCP Internal Medicine; Visit Provider Internal Medicine Hematology
DX: E86.0 Dehydration (principal); C79.9 Secondary malignant neoplasm of unspecified site
CPT/HCPCS: 36415; 80053; 82330; 96360; 96361; J7030

== ENCOUNTER 2024-02-26 13:40 | Emergency (ER) | payer MEDICARE, SELFPAY ==
[2024-02-26] VITALS (42 sets, daily range): BP systolic 132–197; BP diastolic 85–100; PULSE 109–144; RESP 17–31; TEMP 36.9–37.2; O2SAT 93–98
--- NOTE | ~2024-02-26 | XR_ITS ---
EXAMINATION: XR chest 1V portable DATE: 02/26/2024 15:05 INDICATION: Confusion. Lung cancer. TECHNIQUE: A single frontal view of the chest was obtained. COMPARISON: Chest view 09/13/2021 FINDINGS: There is a mass in right lung upper lobe. There is right hilar and right paratracheal lymph adenopathy. There is volume loss of right upper lobe, likely postobstructive atelectasis. No pleural effusion or pneumothorax. The heart size is normal. There are surgical clips in the abdomen. Electrod es overlie the spine. A left upper extremity peripherally inserted central venous catheter (PICC) is seen with tip at the superior cavoatrial junction. IMPRESSION: 1. Mass in right lung upper lobe, consistent with primary bronchogenic carcinoma. 2. Right hilar and right paratracheal lymphadenopathy, consistent with metastatic disease. Reviewed, dictated and finalized at location A. IMPRESSION: 1. Mass in right lung upper lobe, consistent with primary bronchogenic carcinom a. 2. Right hilar and right paratracheal lymphadenopathy, consistent with metastat ic disease.
--- NOTE | ~2024-02-26 | CT_ITS ---
EXAMINATION: CT brain wo con DATE: 02/26/2024 15:05 INDICATION: Altered mental status. Garbled speech. TECHNIQUE: Computed tomography (CT) of the head was performed without intravenous contrast. The mA wa s adjusted according to patient size. Iterative reconstruction technique was employed. The dose-lengt h product was 605.33 mGy-cm. COMPARISON: Head CT 12/10/2023 FINDINGS: There are hyperdense foci in the right parietal lobe with surrounding low attenuation. Ther e is an old lacunar infarct in the left basal ganglia. There is no abnormal mass lesion. The ventricl es are normal in size. The orbits are normal. The paranasal sinuses are clear. The mastoid air cells are normal. IMPRESSION: 1. Mixed attenuation in the right parietal lobe. This finding may be metastatic disease with vasogeni c edema or an acute hemorrhagic infarct. I discussed this finding with Dr. Gutiérrez. 2. Old lacunar infarct in the left basal ganglia. Reviewed, dictated and finalized at location A. IMPRESSION: 1. Mixed attenuation in the right parietal lobe. This finding may be metastatic disease with vasogenic edema or an acute hemorrhagic infarct. I discussed this finding with Dr. Gutiérrez. 2. Old lacunar infarct in the left basal ganglia.
--- NOTE | 2024-02-26 14:02 | ED.AMS ---
HPI - Altered Mental Status General Chief Complaint: Altered Mental Status Stated Complaint: High Calcium/Neuro change Time Seen by Provider: 02/26/24 13:42 Source: patient Mode of arrival: ambulatory Limitations: no limitations History of Present Illness HPI narrative: 74-year-old female with a history of bipolar disorder, chronic pain, migraine, arthritis low Back pain, CVA with left-sided weakness, recently diagnosed with stage 4 non-small cell lung cancer with bone/ brain Mets, hypercalcemia and scheduled to get palliative RT followed by chemo and immunotherapy. She presented with the oncologist specialist Dr. Vilchis who noted her to have -- altered mental status. the patient had a similar episode a few days ago which was thought to be secondary to hypercalcemia/liver Mets. -- Urinary and fecal incontinence. The patient went to see her oncologist from where she was transferred to the ER for altered mental status. The patient is unable to answer questions. She does follow simple commands. MD complaint: altered mental status Onset (ago): day(s) ( Two days) Timing confirmed by: spouse Context: history of similar presentation, cancer and other ( secondary to hypercalcemia cough, metastatic brain lesions) Related Data Home Medications Medication Instructions Recorded Confirmed morphine 30 mg tablet,extended 30 mg PO BID 09/13/21 02/21/24 release trazodone 100 mg tablet 200 mg PO HS 09/13/21 02/21/24 allopurinol 100 mg tablet 200 mg PO DAILY 09/25/22 02/26/24 docusate sodium 100 mg capsule 300 mg PO BID 09/25/22 02/26/24 estradiol 2 mg tablet 2 mg PO DAILY 09/25/22 02/26/24 magnesium oxide 400 mg (241.3 mg 400 mg PO BID 09/25/22 02/26/24 magnesium) tablet mirtazapine 15 mg tablet 15 mg PO HS 09/25/22 02/26/24 naloxegol 25 mg tablet (Movantik) 50 mg PO QAM 09/25/22 02/26/24 quetiapine 300 mg tablet 300 mg PO HS 09/25/22 02/26/24 zinc 50 mg capsule 50 mg PO BID 09/25/22 02/21/24 hydromorphone 2 mg tablet 2 mg PO Q8-10H PRN Pain, Severe 02/26/24 02/26/24 montelukast 10 mg tablet 10 mg PO DAILY 02/26/24 02/26/24 oxycodone-acetaminophen 10 mg-325 1 tablet PO PRN PRN Pain (Scale 02/26/24 02/26/24 mg tablet Score 7-10) zolpidem 12.5 mg tablet,extended 12.5 mg PO DAILY 02/26/24 02/26/24 release,multiphase Allergies Allergy/AdvReac Type Severity Reaction Status Date / Time fentanyl Allergy Hives Verified 02/26/24 15:02 methylprednisolone Allergy Dizziness Verified 02/26/24 15:02 pregabalin [From Lyrica] Allergy Swelling Verified 02/26/24 15:02 tizanidine AdvReac Intermediate MADE PT Verified 10/04/22 07:15 MEAN AND HALLUCINAT diclofenac AdvReac Unknown Verified 02/26/24 15:02 estrogens, conjugated AdvReac Unknown Verified 02/26/24 15:02 [From Premarin] Review of Systems Review of Systems: ROS unobtainable: Yes unobtainable due to mental status [facility] Past Medical History Medical History (Updated 02/26/24 @ 17:58 by Charles Gutiérrez MD) Acute CVA (cerebrovascular accident) Contusion of hip, left Contusion of left shoulder Metastatic lung cancer (metastasis from lung to other site) Social History Social History Smoking packs per day: 1 Smoking cigarettes per day: 20.0 Years smoked: 15 Smoking pack-years: 15.00 Smoking status: Former smoker Tobacco type: cigarettes Smoking end date: 04/27/80 Substance use: never Living arrangements: with family Additional living arrangements comments: Spiritual care concerns: No Exam Narrative: vital stable Const: General: cooperative Other: patient is restless and unable to answer questions appropriately HENMT: Head: normal to inspection, No palpable skull fracture present, normocephalic and atraumatic Ears: hearing grossly normal bilaterally Face/Nose/Sinus: Normal external nose present Face and sinus: normal facial exam and sinuses n
--- NOTE | 2024-02-26 14:11 | ECG_ITS ---
SEE SCANNED COPY FOR CONFIRMED REPORT MTDD
[2024-02-26 14:34] LABS: Appearance Urine Clear (Clear); Bilirubin Urine 1+ (Negative); Blood Urine Trace-intact (Negative); Color Urine Yellow (Yellow); Glucose Urine UA Negative (Negative); Ketones Urine Trace (Negative); Leukocyte Esterase Ur Negative LEU/UL (Negative); Nitrate Urine Negative (Negative); Protein Urine 1+ (Negative); Specific Grav Ur 1.015 (1.010-1.020)
[2024-02-26 14:35] LABS: Hematocrit 38.7 % (35.0-42.0); Hemoglobin 11.3 g/dL (11.7-13.8); Mean Corpuscular HGB Conc 29.2 g/dL (32-36); Mean Corpuscular Hemoglobin 23.2 pg (27.0-31.0); Mean Corpuscular Volume 79.3 fL (78.0-102.0); Mean Platelet Volume 8.7 fl (9.2-11.8); Platelet Count Result 241 K/mm3 (150-420); Red Blood Count 4.88 M/mm3 (4.20-5.40); Red Cell Distribution Width 16.1 % (11.6-14.4)
[2024-02-26] MEDS: SODIUM CHLORIDE 0.9% IV 1,000 ML 999 ML IV CONT (14:35)
[2024-02-26 14:38] LABS: White Blood Count 27.2 K/mm3 (4.8-10.8)
[2024-02-26 14:45] LABS: Add Urine Microscopic? YES; Amorphous Sediment Urine Few; RBC Urine 0-2 /hpf (0-2); Renal Epithelial Cells Urine Few /hpf; Squamous Epithelial Cell Urine Few /hpf (Few); WBC Urine None seen /hpf (0-3)
[2024-02-26 14:46] LABS: Bacteria Urine 2+ /hpf
[2024-02-26 14:49] LABS: Amphetamine Screen Urine Negative (Negative); Barbiturate Screen Urine Negative (Negative); Benzodiazepines Screen Urine Negative (Negative); Cannabinoid Screen Urine Negative (Negative); Cocaine Screen Urine Negative (Negative); INR 1.1; Methadone Screen Urine Negative (Negative); Opiate Screen Urine Positive (Negative); Partial Thromboplastin Time 21.4 Sec (23.9-30.70); Phencyclidine Screen Urine Negative (Negative); Prothrombin Time 11.6 Seconds (9.50-12.1)
[2024-02-26 14:53] LABS: Lactic Acid Reflex 2.9 mmol/L (0.4-2.0)
[2024-02-26 14:59] LABS: Alanine Aminotransferase 17 U/L (14-59); Albumin Level 2.1 g/dL (3.4-5.0); Alkaline Phosphatase 124 U/L (46-116); Anion Gap 11 mmol/L (4-12); Aspartate Amino Transferase 43 U/L (15-37); Bilirubin,Total 1.2 mg/dL (0.00-1.00); Blood Urea Nitrogen 31 mg/dL (7-18); Carbon Dioxide 31 mmol/L (21-32); Chloride 98 mmol/L (98-108); Creatine Kinase 58 U/L (26-192); Estimated Glomerular Filt Rate 44; Glucose 153 mg/dL (70-99); NT Pro B Type Natriuretic Pept 2922 pg/mL (0-125); Osmolality Calculated 299 mOsm/kg (285-295); Potassium 2.9 mmol/L (3.5-5.1); Sodium 140 mmol/L (136-145); Total Protein 8.1 g/dL (6.4-8.2)
[2024-02-26 15:00] LABS: Ammonia < 10 umol/L (11-32)
[2024-02-26 15:01] LABS: Calcium 13.5 mg/dL (8.5-10.1)
[2024-02-26 15:10] LABS: Band Neutrophils Percent 1 % (0-6); Basophils Percent Manual 0 % (0-1); Eosinophils Percent Manual 0 % (1-6); Lymphocytes Absolute Manual 0.81 K/mm3 (1.1-4.5); Lymphocytes Percent Manual 3 % (18-44); Metamyelocytes Percent 2 %; Monocytes Absolute Manual 2.44 K/mm3 (0.1-0.90); Monocytes Percent Manual 9 % (3-9); Myelocytes Percent 1 %; Neutrophils Absolute Manual 23.93 K/mm3 (1.7-7.2); Neutrophils Percent Manual 87 % (46-73); Platelet Estimate Adequate (Adequate); Total Cells Counted 100
[2024-02-26 15:42] LABS: Troponin I 268.3 ng/L (0.00-60.4)
[2024-02-26 15:43] LABS: Magnesium 1.9 mg/dL (1.8-2.4)
[2024-02-26 15:44] LABS: Lipase 1666 U/L (16-77)
[2024-02-26 15:47] LABS: Thyroid Stimulating Hormone 2.85 uIU/mL (0.36-3.74)
[2024-02-26] MEDS: AMIODARONE 150 MG/D5W 100 ML 150 MG/100 ML BAG 600 MG IV CONT (16:10)
[2024-02-26] MEDS: KCL 20MEQ/0.9% SOD CHL 1,000 ML 100 ML IV CONT (16:27)
[2024-02-26] MEDS: PIPERACILLN/TAZ 3.375GM/NS50ML 3.375 GM/50 ML BAG IVPB (16:51)
[2024-02-26] MEDS: LACTATED RINGERS 1,000 ML 999 ML IV CONT (16:55)
[2024-02-26] MEDS: ZOLEDRONIC ACID 4 MG/100 ML 100 ML 400 MG IVPB (17:13)
[2024-02-26] MEDS: VANCOMYCIN 1,000 MG/NS 250 ML BAG 250 MG IVPB ×2 (17:21→17:22)
[2024-02-26 17:29] LABS: Reflex Lactic Acid Yes or No Add Lactic
[2024-02-26 17:35] LABS: MRSA (PCR) NOT DETECTED (NOT DETECTE)
[2024-02-26 18:07] LABS: Lactic Acid 1.9 mmol/L (0.4-2.0)
--- NOTE | 2024-03-03 12:30 | PC.NURSE ---
Final blood culture report, no growth after 5 days, no further action or treatment needed per ERP.
== END 2024-02-26 19:42 | disposition short-term general hospital (02) ==
PROVIDERS: Emergency Provider Internal Medicine Critical Care Medicine; PCP Internal Medicine
DX: E83.52 Hypercalcemia (principal); C34.91 Malignant neoplasm of unspecified part of right bronchus or lung; N17.9 Acute kidney failure, unspecified; R41.0 Disorientation, unspecified; F31.9 Bipolar disorder, unspecified; I69.354 Hemiplegia and hemiparesis following cerebral infarction affecting left non-dominant side; C79.51 Secondary malignant neoplasm of bone; C79.31 Secondary malignant neoplasm of brain; Z87.891 Personal history of nicotine dependence
CPT/HCPCS: 36415; 70450; 71045; 80053; 80307; 81001; 82140; 82550; 83605; 83690; 83735; 83880; 84443; 84484; 85025; 85610; 85730; 87040; 87641; 93005; 96361; 96365; 96366; 96367; 96368; 96375; 99285; J0282; J2543; J3370; J3480; J3489; J7030; J7050; J7120